=== PATIENT | male | born 1935 | race Caucasian/White ===

== ENCOUNTER → 2016-11-23 | Outpatient (CLI) | payer OTHER, MEDICARE ==
[2016-11-23 09:43] LABS: HEMATOCRIT 38.1 % (42.0-52.0); HEMOGLOBIN 12.5 g/dL (14.0-18.0); MEAN CORPUSCULAR HEMOGLOBIN 29.6 PG (27-31); MEAN CORPUSCULAR HGB CONC 32.8 g/dL (33-37); MEAN PLATELET VOLUME 9.1 FL (7.4-12.2); RDW COEFFICIENT OF VARIATION 13.8 % (11.5-14.5); RED BLOOD COUNT 4.22 10^6/uL (4.70-6.10); WHITE BLOOD COUNT 9.05 10^3/uL (4.8-10.8)
[2016-11-23 09:57] LABS: BAND NEUTROPHILS % 0 % (0-10); BASOPHILS % (MANUAL) 0 % (0-1); EOSINOPHILS % (MANUAL) 1 % (0-8); LYMPHOCYTES % (MANUAL) 30 % (10-50); MONOCYTES % (MANUAL) 4 % (0-12); NEUTROPHILS % (MANUAL) 65 % (50-80); PLATELET MORPHOLOGY COMMENT NORMAL MORPHOLOGY (NORM)
[2016-11-23 10:05] LABS: HEMOGLOBIN A1C 9.51 % (4.2-6.0); MEAN BLOOD GLUCOSE (CALC) 230.683 mg/dL
[2016-11-23 10:07] LABS: CREATININE, URINE 138.4 MG/DL (15-500)
== END ==
LOC: LAB 09:26
PROVIDERS: ATTEND Internal Medicine
DX: E11.9 Type 2 diabetes mellitus without complications (principal); Z79.4 Long term (current) use of insulin; D50.9 Iron deficiency anemia, unspecified
CPT/HCPCS: 36415; 82043; 83036; 85007

== ENCOUNTER → 2016-11-30 | Outpatient (CLI) | payer OTHER, MEDICARE | LOC: MMPC 11:11 | PROVIDERS: ATTEND Internal Medicine | DX: E11.9 Type 2 diabetes mellitus without complications (principal) | CPT/HCPCS: 99213; G0463 ==

== ENCOUNTER → 2016-12-14 | Outpatient (CLI) | payer OTHER, MEDICARE ==
--- NOTE | 2016-12-14 19:35 | DI ---
LEFT FOOT, 12/14/2016 10:07 AM: Clinical History: Left foot pain. Previous Exam: 05/21/2009; 05/05/2011; 11/28/2013; and 02/04/2015. 3 weightbearing views are submitted. There is no acute soft tissue, osseous, or joint abnormality. Th e patient is status post resection of the base of the proximal phalanx of the great toe with placemen t of a metallic implant. The serial exams show progressive erosion of the distal head of the first me tatarsal bone with remodeling to conform to the flat surface of the implant. There is no evidence of loosening of the prosthetic device. The remainder of the examination is unremarkable. Reading: Status post placement of an implant metallic disc at the base of the proximal phalanx of the great to e. Progressive erosion has developed over the distal head of the first metatarsal bone but there is n o evidence of loosening of the prosthesis.
== END ==
LOC: MOB RAD 10:08
PROVIDERS: ATTEND Podiatrist Foot & Ankle Surgery
DX: M79.672 Pain in left foot (principal); M20.5X2 Other deformities of toe(s) (acquired), left foot; L60.3 Nail dystrophy; Z98.890 Other specified postprocedural states
CPT/HCPCS: 73630

== ENCOUNTER → 2017-03-02 | Outpatient (CLI) | payer OTHER, MEDICARE ==
[2017-03-02 08:21] LABS: HEMOGLOBIN A1C 8.39 % (4.2-6.0)
[2017-03-02 08:35] LABS: CREATININE, URINE 45.7 MG/DL (15-500)
== END ==
LOC: LAB 07:54
PROVIDERS: ATTEND Internal Medicine
DX: E11.9 Type 2 diabetes mellitus without complications (principal); Z79.4 Long term (current) use of insulin
CPT/HCPCS: 36415; 82043; 83036; 99214; G0463

== ENCOUNTER → 2017-03-16 | Outpatient (CLI) | payer OTHER, MEDICARE | LOC: MMPC 10:00 | PROVIDERS: ATTEND Podiatrist Foot & Ankle Surgery | DX: M25.572 Pain in left ankle and joints of left foot (principal); M20.5X2 Other deformities of toe(s) (acquired), left foot; L60.9 Nail disorder, unspecified; G62.89 Other specified polyneuropathies; E11.9 Type 2 diabetes mellitus without complications | CPT/HCPCS: 11719 ×2; 99212; G0463 ==

== ENCOUNTER 2017-05-30 08:15 | Emergency (ER) | payer OTHER, MEDICARE ==
--- NOTE | 2017-05-30 09:05 | PDOC ---
Lower Extremity Injury HPI - General Chief Complaint: Lower Extremity Problem/Injury Stated Complaint: RIGHT > LEFT LOWER LEG PAIN x4 WKS, DIABETIC Date Seen by Provider: 05/30/17 Time Seen by Provider: 08:43 - History of Present Illness Initial Comments: This patient is a very nice 82-year-old gentleman with known history of diabetes mellitus who has been struggling with some foot pain for the last month or 2. He states that the pain is there all day sometimes gets worse in the afternoon evening is on the plantar surface of his foot focus is in the heel and then goes up further into the foot towards his metatarsal heads and now into the lateral aspect of his right foot as well. He states he becomes very tender to even put weight on his foot/heel a lot of the time. He has not been evaluated for this in the past. He's noticed no skin breakdown or no redness or other concerning features. He's had no trauma to the foot at all. He's never had any diabetic ulcers diabetic sores never been told that he has substantial diabetic neuropathy. Have you received a tetanus shot in the past 10 years?: Unknown - Patient Home Medications Home Medications: Home Medications Aspirin [Aspir 81] 1 tab PO DAILYRT 11/22/10 Multivitamin [Daily Vitamin] 1 tab ORAL QD tab 01/13/12 Fish Oil/Fat No.8/Hrb Comb.137 [[place] 3-6-9 1,200 Mg Softgel] 1 cap PO DAILY 10/21 Blood-Glucose Meter [Freestyle Lite Meter] 1 each MC QD #1 each 10/29/15 Acetaminophen [Tylenol] 500 mg PO Q4H tab 12/08/15 Carvedilol 1 tab PO BID #180 tab 08/29/16 Duloxetine HCl [Cymbalta] 1 cap ORAL QD #90 capsule 08/29/16 Gabapentin [Neurontin] 1 tab PO TID #180 cap 08/29/16 Lisinopril 1 tab PO QD #90 tab 08/29/16 Pravastatin Sodium [Pravachol] 1 tab-cap PO QPM #90 tab 08/29/16 Sitagliptin Phosphate [Januvia] 1 tab PO DAILY #28 tab 08/29/16 Terazosin HCl 2 cap ORAL QHS #180 capsule 08/29/16 Thiamine HCl [B-1] 1 tab PO QD #90 tab 08/29/16 Albuterol Sulfate [Proair Hfa] 2 puff INH Q4-6H #1 inh 11/23/16 Blood Sugar Diagnostic [Freestyle Lite Strips] 1 strip IN DAILY #50 strip Insulin Detemir [Levemir Flextouch] 25 unit SUBCUT BID #5 each 03/02/17 Methylphenidate HCl 1 tab PO BID #60 tab 03/02/17 Pen Needle, Diabetic [Insulin Pen Needle] 1 each MC BID #200 each 03/07/17 - Patient Allergies Allergies/Adverse Reactions: Allergies Allergy/AdvReac Type Severity Reaction Status Date / Time clindamycin [Clindamycin] Allergy Intermediate SHORTNESS Verified 05/30/17 08:23 OF BREATH codeine Allergy Intermediate .HEAVY Verified 05/30/17 08:23 SEDATION furosemide Allergy Intermediate Itching Verified 05/30/17 08:23 levofloxacin [From Levaquin] Allergy Intermediate nausea Verified 05/30/17 08:23 meloxicam Allergy Intermediate Itching Verified 05/30/17 08:23 sulfasalazine Allergy Intermediate Itching Verified 05/30/17 08:23 cephalexin AdvReac Intermediate nausea Verified 05/30/17 08:23 Anesthetics - Amide Type AdvReac Unknown nursing home Verified 05/30/17 08:23 confusion and sedation Past Medical History - heen HEENT History: Cataracts, Hard of Hearing Cardiovascular History: Hypertension Additional Cardiovasular History: ANKLE EDEMA/ SINUS BRADYCARDIA Respiratory History: Denies History Gastrointestinal History: Denies History Additional Gastrointestinal History: HELICOBACTER PYLORI GASTRO TRACT INFECTION Genitourinary History: Denies History Additional Genitourinary History: BPH Endocrine History: Type 2 Diabetes (oral), Type 2 Diabetes (insulin) Additional Endocrine History: DIABETIC NEUROPATHY Musculoskeletal History: Rheumatoid Arthritis Prosthesis or Implant: Yes (R TSA) Additional Musculoskeletal History: BACK SURGERY X 5/SPINAL CORD STIMULATOR Neurological History: TIA Additional Neurological History: 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 Blood Disorders: Denies History Psychiatric History: Denies History History of Sexually Transmitted Diseases: No Cancer History: Skin In Past Year Been Physically Harmed or Verbally Threatened: No History of MDRO: No History of Other Communicable Diseases: No Tobacco Use: Former Smoker Alcohol Use: None Substance Use Type: None Previous Surgical History: Yes Type / Date of Surgery: CAROTID ENDARTERECTOMY/ LEFT CATARACT EXT/ MULTIPLE BACK SX/ LEFT GREAT TOE/ BILAT THUMBS/ LEFT RING FINGER PARTIAL AMP/ RIGHT TSA/ COLONOSCOPY Anesthesia Reactions: No Malignant Hyperthermia: No Significant Family History: No pertinent family hx Past Medical History Reviewed: Reviewed - No Changes ROS - Limitations ROS Limitations: No Limitations Constitution: REPORTS: Denies Symptoms Cardiovascular: REPORTS: Denies Cardiac Symptoms Respiratory: REPORTS: Denies Resp Symptoms Lower Ext Complaint Exam - General Appearance General Appearance: POSITIVE: Alert, Cooperative, No Acute Distress - Extremities Lower Extremity: POSITIVE: Other (Right lower extremities inspected he has warm lower legs and feet. His right lower extremity has normal capillary refill time in the toes no areas of skin breakdown or ulceration no erythema no joint inflammation is noted. He does have tenderness at the base of the heel the does plan forward towards his metatarsals and also off to the lateral aspect of his foot with firm palpation.) Lower Ext Complaint Progress - Patient's Progress MDM / ED Course: Based on the patient's story and exam I don't feel that further imaging is going to be very helpful as it seems like he has plantar fasciitis. I think at minimum we should do a trial of some foot stretching warm or cold soaks a week worth of naproxen as he tells me his kidneys aren't fine shape and we can use an [id number] 220 mg dose. If he is getting substantial relief from this he may just need further management for his plantar fasciitis. He also has an appointment set up with a programming specialist in about a week or 10 days and I've told him to make that appointment for sure to discuss his symptoms and have an evaluation. He knows to return sooner if he starts to develop redness tenderness fever or chills skin breakdown or any other symptoms or issues of concern. Patient Care Time - Estimated PCT Patient Care Time (In Minutes): 15 Vital Signs - Recent Vital Signs Vital Signs: Vital Signs (Last 8 hours) Temp Pulse Resp BP Pulse Ox 05/30/17 08:31 97.6 F 45 L 18 173/74 95 - VS Reviewed Vital Signs Reviewed: Yes Discharge Clinical Impression: Plantar fasciitis of right foot Discharge Disposition: Discharged to Home Condition: Stable Additional Instructions: Do foot stretches as recommended in the hand out. Take naproxen 250 mg [id number] twice a day for the next 5-7 days Follow-up with your programming specialist as is already arranged Follow-up here if you develop new symptoms or other issues of concern. Follow Up With: JEFFERY CAO [Primary Care Provider] -
[2017-05-30 09:08] VITALS: RESP 18; TEMP 97.6
== END 2017-05-30 08:55 | disposition home or self-care (01) ==
LOC: ER 08:15
DX: M72.2 Plantar fascial fibromatosis (principal); M79.672 Pain in left foot; E11.40 Type 2 diabetes mellitus with diabetic neuropathy, unspecified; Z79.4 Long term (current) use of insulin
CPT/HCPCS: 99282